=== PATIENT | male | born 1940 | race Caucasian/White ===

== ENCOUNTER 2019-07-20 20:35 | Emergency (ER) | payer MEDICARE, OTHER ==
--- NOTE | 2019-07-20 21:08 | EDM.PDOC ---
ED HPI GENERAL MEDICAL PROBLEM - General Chief Complaint: General Stated Complaint: INNER LEFT LEG PAIN Time Seen by Provider: 07/20/19 20:39 Source of Information: Reports: Patient History Limitations: Reports: No Limitations - History of Present Illness INITIAL COMMENTS - FREE TEXT/NARRATIVE: This patient is a 78-year-old male with a past medical history of hypertension, type 2 diabetes mellitus, hyperlipidemia presenting with thigh pain. Reports a 1 day history of intermittent left medial thigh pain radiating to left groin. Nothing makes it better or worse. No history of prior pain. Described as "aching". No self treatment prior to arrival. Denies any other complaints. Left Upper Leg Pain Score (Numeric/FACES): 5 - Related Data Allergies Allergy/AdvReac Type Severity Reaction Status Date / Time No Known Allergies Allergy Verified 07/20/19 20:50 Home Meds: Home Meds Fenofibrate Nanocrystallized [Fenofibrate] 145 mg PO DAILY 11/12/14 [History] Lisinopril 20 mg PO DAILY 11/12/14 [History] metFORMIN [Glucophage XR] 750 mg PO BID 11/12/14 [History] Aspirin/Calcium Carbonate/Mag [Aspirin Buffered 325 mg Tab] 1 tab PO DAILY 06/25 [History] Fluticasone Propion/Salmeterol [Advair 250-50 Diskus] 1 dose INH DAILY PRN 06/25 [History] Fish Oil/[place]-3 Fatty Acids [Fish Oil] 1 gm PO DAILY 08/06/15 [History] Furosemide 40 mg PO DAILY 07/20/19 [History] Past Medical History HEENT History: Reports: Otitis Media Other HEENT History: wears glasses Cardiovascular History: Reports: High Cholesterol, Hypertension Respiratory History: Reports: COPD Gastrointestinal History: Reports: None Genitourinary History: Reports: Urinary Incontinence Musculoskeletal History: Reports: Fracture Other Musculoskeletal History: finger, also had "cracked" vertebrate in neck Neurological History: Reports: None Psychiatric History: Reports: None Endocrine/Metabolic History: Reports: Diabetes, Type II, Obesity/BMI 30+ Other Endocrine/Metabolic History: borderline diabetic Hematologic History: Reports: None Immunologic History: Reports: None Oncologic (Cancer) History: Reports: Bladder, Prostate Dermatologic History: Reports: None - Infectious Disease History Infectious Disease History: Reports: Chicken Pox, Measles, Mumps - Past Surgical History Head Surgeries/Procedures: Reports: None Cardiovascular Surgical History: Reports: Vascular Surgery Male Surgical History: Reports: Prostatectomy, Other (See Below) Social & Family History - Family History Family Medical History: Noncontributory - Tobacco Use Smoking Status *Q: Former Smoker Years of Tobacco use: 30 Packs/Tins Daily: 1 Used Tobacco, but Quit: Yes Month/Year Tobacco Last Used: Second Hand Smoke Exposure: No - Caffeine Use Caffeine Use: Reports: Coffee - Recreational Drug Use Recreational Drug Use: No ED ROS GENERAL - Review of Systems Review Of Systems: See Below Constitutional: Denies: Fever, Chills HEENT: Reports: No Symptoms Respiratory: Denies: Shortness of Breath Cardiovascular: Denies: Chest Pain Endocrine: Reports: No Symptoms GI/Abdominal: Denies: Abdominal Pain, Nausea, Vomiting : Reports: No Symptoms Musculoskeletal: Reports: Leg Pain. Denies: Back Pain Skin: Reports: No Symptoms Neurological: Denies: Headache Psychiatric: Reports: No Symptoms Hematologic/Lymphatic: Reports: No Symptoms ED EXAM, GENERAL - Physical Exam Exam: See Below Free Text/Narrative:: Vital signs reviewed. Nursing notes reviewed. Constitutional: Awake, alert, non-distressed. Head: Normocephalic, atraumatic. Eyes: EOMI, conjunctiva normal, no discharge, no scleral icterus. Ears, Nose, Throat: External ears and nose normal, moist oral mucosa. Cardiovascular: 2+ radial pulse, capillary refill less than 2 seconds. 2+ bilateral DP and PT pulses. Legs are iso-thermic to the touch. Pulmonary: normal work of breathing, no accessory muscle use. Abdomen/GI: Soft, nontender, nondistended, no guarding or rigidity, no masses. Obese Musculoskeletal: No deformities. Integumentary: Appropriate color for ethnicity, warm, dry, no pallor or jaundice , no rash. Left lower extremity displays no evidence of erythema, induration, or swelling to suggest cellulitis or venous thromboembolism Neurologic: Alert, answering questions appropriately, normal speech, no facial droop, moving all extremities well. Psychiatric: Appropriate mood and affect, normal thought process. Course - Vital Signs Text/Narrative:: Vitally stable on arrival, afebrile. Well-appearing, looks nontoxic. Mildly low SPO2 levels but no shortness of breath. Physical exam revealed mild tenderness of the left medial thigh. No evidence of cellulitis, no swelling. No skin changes. Strong equal distal pulses in both feet, legs are iso-thermic to palpation. D-dimer elevated at 0.84. CBC and metabolic panels are reassuring. Urinalysis unremarkable. DVT ultrasound negative. CT angiogram of the abdomen/pelvis and lower extremities demonstrate a 4.9 cm AAA with moderate thrombus burden, but widely patent arteries in the legs. Etiology of patient's thigh pain is not entirely clear, could be due to musculoskeletal strain. No evidence of infection. With elevated d-dimer, did recommend a repeat DVT ultrasound in 1 week with the patient's primary care physician. He was counseled about the findings of his AAA and the need to follow-up with primary care clinic in the next 1 month for reevaluation. Recommended [id number] acetaminophen for pain and close primary care follow-up. I recommend [id number] extra strength Tylenol for pain. Plan: Patient is stable to discharge home with outpatient primary care follow- up. Strict emergency department return precautions were provided, patient indicated understanding. All questions were answered prior to departure. Discharged in good condition. Last Recorded V/S: Last Vital Signs Temp 35.7 C L 07/21/19 00:41 Pulse 65 07/21/19 00:41 Resp 16 07/21/19 00:41 BP 128/60 07/21/19 00:41 Pulse Ox 94 L 07/21/19 00:41 - Orders/Labs/Meds Orders: Active Orders 24 hr Category Date Time Status Pulse Oximetry [RC] ASDIRECTED Care 07/20/19 21:41 Active Sodium Chloride 0.9% [Normal Saline] Med 07/20/19 21:41 Active 10 ml IV ASDIRECTED PRN Sodium Chloride 0.9% [Saline Flush] Med 07/20/19 21:41 Active 10 ml FLUSH ASDIRECTED PRN Sodium Chloride 0.9% [Saline Flush] Med 07/20/19 21:41 Active 2.5 ml FLUSH ASDIRECTED PRN Peripheral IV Insertion Adult [OM.PC] Stat Oth 07/20/19 21:41 Ordered Medication Orders Sodium Chloride (Saline Flush) 10 ml FLUSH ASDIRECTED PRN PRN Reason: Keep Vein Open Last Admin: 07/20/19 22:20 Dose: 10 ml Sodium Chloride (Saline Flush) 2.5 ml FLUSH ASDIRECTED PRN PRN Reason: Keep Vein Open Last Admin: 07/20/19 22:20 Dose: 2.5 ml Sodium Chloride (Normal Saline) 10 ml IV ASDIRECTED PRN PRN Reason: IV Use Last Admin: 07/20/19 22:20 Dose: 10 ml Labs: Laboratory Tests 07/20/19 07/20/19 07/20/19 Range/Units 21:45 22:15 22:15 WBC 7.04 (4.0-11.0) K/uL RBC 4.53 (4.50-5.90) M/uL Hgb 13.7 (13.0-17.0) g/dL Hct 42.0 (38.0-50.0) % MCV 92.7 (80.0-98.0) fL MCH 30.2 (27.0-32.0) pg MCHC 32.6 (31.0-37.0) g/dL RDW Std Deviation 46.3 (28.0-62.0) fl RDW Coeff of [place] 14 (11.0-15.0) % Plt Count 180 (150-400) K/uL MPV 10.50 (7.40-12.00) fL Neut % (Auto) 55.1 (48.0-80.0) % Lymph % (Auto) 24.9 (16.0-40.0) % [place] % (Auto) 16.9 H (0.0-15.0) % Eos % (Auto) 2.8 (0.0-7.0) % Baso % (Auto) 0.3 (0.0-1.5) % Neut # (Auto) 3.9 (1.4-5.7) K/uL Lymph # (Auto) 1.8 (0.6-2.4) K/uL [place] # (Auto) 1.2 H (0.0-0.8) K/uL Eos # (Auto) 0.2 (0.0-0.7) K/uL Baso # (Auto) 0.0 (0.0-0.1) K/uL Nucleated RBC % 0.0 /100WBC Nucleated RBCs # 0 K/uL D-Dimer, Quantitative (0.0-0.50) mg/L FEU Sodium 139 (136-148) mmol/L Potassium 4.1 (3.5-5.1) mmol/L Chloride 104 (98-107) mmol/L Carbon Dioxide 22.4 (21.0-32.0) mmol/L BUN 28 H (7.0-18.0) mg/dL Creatinine 1.3 (0.8-1.3) mg/dL Est Cr Clr Drug Dosing 43.62 mL/min Estimated GFR (MDRD) 53.7 ml/min Glucose 135 H (74-106) mg/dL Calcium 8.5 (8.5-10.1) mg/dL Total Bilirubin 0.3 (0.2-1.0) mg/dL AST 27 (15-37) IU/L ALT 27 (14-63) IU/L Alkaline Phosphatase 31 L (46-116) U/L Total Protein 6.6 (6.4-8.2) g/dL Albumin 3.5 (3.4-5.0) g/dL Globulin 3.1 (2.6-4.0) g/dL Albumin/Globulin Ratio 1.1 (0.9-1.6) Urine Color YELLOW Urine Appearance CLEAR Urine pH 6.5 (5.0-8.0) Ur Specific [place] 1.020 (1.001-1.035) Urine Protein NEGATIVE (NEGATIVE) mg/dL Urine Glucose (UA) NEGATIVE (NEGATIVE) mg/dL Urine Ketones NEGATIVE (NEGATIVE) mg/dL Urine Occult Blood NEGATIVE (NEGATIVE) Urine Nitrite NEGATIVE (NEGATIVE) Urine Bilirubin NEGATIVE (NEGATIVE) Urine Urobilinogen 0.2 (<2.0) EU/dL Ur Leukocyte Esterase NEGATIVE (NEGATIVE) 07/20/19 Range/Units 22:15 WBC (4.0-11.0) K/uL RBC (4.50-5.90) M/uL Hgb (13.0-17.0) g/dL Hct (38.0-50.0) % MCV (80.0-98.0) fL MCH (27.0-32.0) pg MCHC (31.0-37.0) g/dL RDW Std Deviation (28.0-62.0) fl RDW Coeff of [place] (11.0-15.0) % Plt Count (150-400) K/uL MPV (7.40-12.00) fL Neut % (Auto) (48.0-80.0) % Lymph % (Auto) (16.0-40.0) % [place] % (Auto) (0.0-15.0) % Eos % (Auto) (0.0-7.0) % Baso % (Auto) (0.0-1.5) % Neut # (Auto) (1.4-5.7) K/uL Lymph # (Auto) (0.6-2.4) K/uL [place] # (Auto) (0.0-0.8) K/uL Eos # (Auto) (0.0-0.7) K/uL Baso # (Auto) (0.0-0.1) K/uL Nucleated RBC % /100WBC Nucleated RBCs # K/uL D-Dimer, Quantitative 0.84 H (0.0-0.50) mg/L FEU Sodium (136-148) mmol/L Potassium (3.5-5.1) mmol/L Chloride (98-107) mmol/L Carbon Dioxide (21.0-32.0) mmol/L BUN (7.0-18.0) mg/dL Creatinine (0.8-1.3) mg/dL Est Cr Clr Drug Dosing mL/min Estimated GFR (MDRD) ml/min Glucose (74-106) mg/dL Calcium (8.5-10.1) mg/dL Total Bilirubin (0.2-1.0) mg/dL AST (15-37) IU/L ALT (14-63) IU/L Alkaline Phosphatase (46-116) U/L Total Protein (6.4-8.2) g/dL Albumin (3.4-5.0) g/dL Globulin (2.6-4.0) g/dL Albumin/Globulin Ratio (0.9-1.6) Urine Color Urine Appearance Urine pH (5.0-8.0) Ur Specific [place] (1.001-1.035) Urine Protein (NEGATIVE) mg/dL Urine Glucose (UA) (NEGATIVE) mg/dL Urine Ketones (NEGATIVE) mg/dL Urine Occult Blood (NEGATIVE) Urine Nitrite (NEGATIVE) Urine Bilirubin (NEGATIVE) Urine Urobilinogen (<2.0) EU/dL Ur Leukocyte Esterase (NEGATIVE) Meds: Medications Generic Name Dose Route Start Last Admin Trade Name Freq PRN Reason Stop Dose Admin Sodium Chloride 10 ml 07/20/19 21:41 07/20/19 22:20 Saline Flush FLUSH 10 ml ASDIRECTED PRN Administration Keep Vein Open Sodium Chloride 2.5 ml 07/20/19 21:41 07/20/19 22:20 Saline Flush FLUSH 2.5 ml ASDIRECTED PRN Administration Keep Vein Open Sodium Chloride 10 ml 07/20/19 21:41 07/20/19 22:20 Normal Saline IV 10 ml ASDIRECTED PRN Administration IV Use Discontinued Medications Generic Name Dose Route Start Last Admin Trade Name Freq PRN Reason Stop Dose Admin Oxycodone/Acetaminophen 2 tab 07/20/19 21:41 07/20/19 22:19 Percocet 325-5 Mg PO 07/20/19 21:42 2 tab ONETIME ONE Administration Departure - Departure Time of Disposition: 01:20 Disposition: Home, Self-Care 01 Condition: Good Clinical Impression: Left thigh pain, Elevated d-dimer, AAA (abdominal aortic aneurysm) without rupture - Discharge Information *PRESCRIPTION DRUG MONITORING PROGRAM REVIEWED*: Not Applicable *COPY OF PRESCRIPTION DRUG MONITORING REPORT IN PATIENT CRISTIAN: Not Applicable Instructions: Abdominal Aortic Aneurysm, [id number], Pain Without a Known Cause Referrals: PCP,None [Primary Care Provider] - [facility] - Family Practice [Provider Group] - 1 Week Forms: ED Department Discharge Additional Instructions: Thank you for choosing the [facility] emergency department in [place] for your medical needs today. It was a pleasure caring for you. You were seen in the emergency department for thigh pain. You should follow-up with your doctor or our family medicine clinic in the next [address] scans and ultrasound studies were negative. One of your blood tests, called a d-dimer, was elevated. This is a test for clotting. With a negative ultrasound study, we typically recommend that you have a repeat ultrasound study in about 1 week. Your primary care doctor can arrange this. We also noted that you have an abdominal aortic aneurysm, or ballooning of the large artery in your abdomen. You may have already been aware of this. Your aneurysm is 4.9 cm large, aneurysms that are 5.0 cm or larger typically warrant referral to a vascular surgeon to see if you need to have a stent or graft placed to prevent aneurysm rupture and in the future. I do recommend that you follow-up with your primary doctor or a vascular surgery clinic in the next 1 to 2 weeks for reevaluation of this aneurysm. You need to return to the ER immediately if you have severe abdominal or back pain. Please return the emergency department immediately if your symptoms worsen or if you feel worse. The following information is given to patients seen in the emergency department who are being discharged. This information is to outline your options for follow -up care. We provide all patients seen in our emergency department with a follow -up referral. The need for follow-up, as well as the timing and circumstances, are variable depending upon the specifics of your emergency department visit. If you don't have a primary care physician on staff, we will provide you with a referral. We always advise you to contact your personal physician following an emergency department visit to inform them of the circumstance of the visit and for follow-up with them and/or the need for any referrals to a consulting specialist. The emergency department will also refer you to a specialist when appropriate. This referral assures that you have the opportunity for follow-up care with a specialist. All of these measure are taken in an effort to provide you with optimal care, which includes your follow-up. Under all circumstances we always encourage you to contact your private physician who remains a resource for coordinating your care. When calling for follow-up care, please make the office aware that this follow-up is from your recent emergency room visit. If for any reason you are refused follow-up, please contact the [facility] Emergency Department at and asked to speak to the emergency department charge nurse. If you do not have a primary care physician that is caring for you, you can contact these clinics below to set up an appointment to establish care: [facility] - Primary Care [address] [place] [id number] [facility] [address] [place] [id number] Sepsis Event Note (ED) - Evaluation Sepsis Screening Result: No Definite Risk - Focused Exam Vital Signs: Vital Signs Temp Pulse Resp BP Pulse Ox 07/21/19 00:41 35.7 C L 65 16 128/60 94 L 07/20/19 23:30 61 14 135/73 93 L 07/20/19 22:20 60 15 142/69 H 95 07/20/19 20:55 35.9 C L 68 16 132/65 92 L - My Orders Last 24 Hours: My Active Orders 07/20/19 21:41 Pulse Oximetry [RC] ASDIRECTED Sodium Chloride 0.9% [Normal Saline] 10 ml IV ASDIRECTED PRN Sodium Chloride 0.9% [Saline Flush] 10 ml FLUSH ASDIRECTED PRN Sodium Chloride 0.9% [Saline Flush] 2.5 ml FLUSH ASDIRECTED PRN Peripheral IV Insertion Adult [OM.PC] Stat - Assessment/Plan Last 24 Hours: My Active Orders 07/20/19 21:41 Pulse Oximetry [RC] ASDIRECTED Sodium Chloride 0.9% [Normal Saline] 10 ml IV ASDIRECTED PRN Sodium Chloride 0.9% [Saline Flush] 10 ml FLUSH ASDIRECTED PRN Sodium Chloride 0.9% [Saline Flush] 2.5 ml FLUSH ASDIRECTED PRN Peripheral IV Insertion Adult [OM.PC] Stat
[2019-07-20] MEDS ORDERED: Sodium Chloride 0.9% 2.5 ML Syringe FLUSH PRN (21:41)
[2019-07-20] MEDS ORDERED: Sodium Chloride 0.9% 10 ML SDV IV PRN (21:41)
[2019-07-20] MEDS ORDERED: Acetaminophen/oxyCODONE 325-5 MG Tab PO ONE (21:41)
[2019-07-20] MEDS ORDERED: Sodium Chloride 0.9% 10 ML Syringe FLUSH PRN (21:41)
[2019-07-20 22:43] LABS: CARBON DIOXIDE,CO2 22.4 mmol/L (21.0-32.0); POTASSIUM,K 4.1 mmol/L (3.5-5.1)
--- NOTE | 2019-07-20 23:21 | US ---
INDICATION: Left medial thigh pain TECHNIQUE: Ultrasound venous duplex lower left extremity. Compression venous exam was performed using ornelas-scale, color Doppler, and spectral Doppler analysis. COMPARISON: FINDINGS: Sonographic imaging demonstrates the left common femoral, deep femoral, superficial femoral, popliteal, posterior tibial and greater saphenous and the contralateral right common femoral veins to be fully compressible with normal color Doppler blood flow. IMPRESSION: Normal left lower extremity venous ultrasound, no sign of deep venous thrombosis. Dictated by Zi Barajas MD @ Jul 20 2019 11:18PM Signed by Dr. Zi Barajas @ Jul 20 2019 11:19PM
--- NOTE | 2019-07-21 01:14 | CT ---
INDICATION: Left inguinal and thigh pain. History of left femoral stent. COMPARISON: None available TECHNIQUE: CT angiography of the abdomen and pelvis was performed along with CT angiography of the thighs through the feet with the uneventful intravenous administration of iodinated contrast while 3 mm thick axial and 2 millimeter thick sagittal and coronal sections were obtained from the lung bases through the knees. Please note that all CT scans at this facility use dose modulation, iterative reconstruction, and/or weight-based dosing when appropriate to reduce radiation dose to as low as reasonably achievable. FINDINGS: : In the abdomen, the liver, spleen, pancreas, and adrenals are normal in appearance. There are cysts in both kidneys, a 2.0 centimeter right inferior parapelvic cyst and a 1.9 centimeter left lower pole cyst. The kidneys are otherwise normal in appearance. The gallbladder is normal in appearance. There is aneurysmal dilatation of the infrarenal abdominal aorta with a maximal AP diameter of 4.9 centimeters, extending to the aortic bifurcation but not into the common iliac arteries. There is moderate thrombus along the anterior and left wall of the aneurysm. The celiac axis is widely patent. There is mild stenosis of the proximal SMA, less than 50 percent. The solitary bilateral renal arteries are widely patent. The LORRIE appears to be occluded. There is a widely patent left common iliac artery stents which passes into the superior external iliac artery. There are multiple metallic densities in the superior left internal iliac artery consistent with coil embolization. The right common, external, and internal iliac arteries are widely patent. There is no sign of retroperitoneal mass or adenopathy. The stomach, loops of small bowel, and colon in the abdomen are normal in appearance. In the pelvis, the appendix is normal in appearance with no sign of inflammatory process. The loops of small bowel and colon in the pelvis are normal in appearance. The prostate is normal in appearance. The urinary bladder is normal in appearance. There is no sign of pelvic or inguinal mass or adenopathy. There is no sign of free fluid or free air in the abdomen or pelvis. There is excellent runoff into the legs bilaterally. The common and superficial femoral arteries have mild calcifications with no stenoses. The popliteal arteries are widely patent through the trifurcations, with excellent triple-vessel runoff into both lower extremities. The anterior and posterior tibial arteries reach the ankle in cross the ankle bilaterally. The peroneal arteries reach the ankles as well. There is mild linear atelectasis in the posterior lung bases bilaterally. Additional mild linear atelectasis is present in the inferior anterior right middle lobe. The osseous structures are normal in appearance for the patient`s age. IMPRESSION: CT angiography of the abdominal aorta shows a 4.9 centimeter infrarenal abdominal aortic aneurysm extending to the aortic bifurcation, but not into the common iliac arteries. Widely patent left common and external iliac stent. Embolic coils seen in the superior portion of the left internal iliac artery. Excellent runoff into both lower extremities with triple vessel runoff reaching the ankles bilaterally. CT of the abdomen shows small cysts in both kidneys of no clinical concern. Normal CT of the pelvis with contrast. Please note that all CT scans at this facility use dose modulation, iterative reconstruction, and/or weight-based dosing when appropriate to reduce radiation dose to as low as reasonably achievable. Dictated by Solomon Avalos MD @ Jul 21 2019 12:57AM (Electronically Signed)
[2019-07-21] MEDS ORDERED: Iopamidol 755 MG/ML 500 ML Multipack Bottle IVPUSH STA (01:25)
[2019-07-21 01:42] VITALS: BP 125/66; PULSE 60
== END 2019-07-21 01:43 | disposition home or self-care (01) ==
LOC: MW.ED 20:35
DX: M79.652 Pain in left thigh (principal); R79.1 Abnormal coagulation profile; I71.4 Abdominal aortic aneurysm, without rupture; I10 Essential (primary) hypertension; E11.9 Type 2 diabetes mellitus without complications; J44.9 Chronic obstructive pulmonary disease, unspecified; E66.9 Obesity, unspecified; Z68.39 Body mass index [BMI] 39.0-39.9, adult; Z87.891 Personal history of nicotine dependence; Z79.899 Other long term (current) drug therapy; Z79.82 Long term (current) use of aspirin; Z79.84 Long term (current) use of oral hypoglycemic drugs
CPT/HCPCS: 36415; 75635; 80053; 81003; 85025; 85379; 93971; 99284; A9270; J7050; Q9967

== ENCOUNTER 2021-05-31 13:44 | Emergency (ER) | payer MEDICARE, BC ==
[2021-05-31 16:19] LABS: CARBON DIOXIDE,CO2 31.3 mmol/L (21.0-32.0); POTASSIUM,K 3.7 mmol/L (3.5-5.1)
[2021-05-31] MEDS ORDERED: Iopamidol 755 MG/ML 500 ML Multipack Bottle IVPUSH STA (16:49)
[2021-05-31] MEDS ORDERED: traMADol 50 MG Tab PO ONE (18:03)
[2021-05-31 18:11] VITALS: BP 152/70; PULSE 71
[2021-05-31] MEDS ORDERED: Ketorolac 30 MG/ML SDV IM ONE (18:40)
[2021-05-31] MEDS ORDERED: Lidocaine 5% 700 MG Patch TRDERM ONE (18:41)
== END 2021-05-31 19:17 | disposition home or self-care (01) ==
LOC: MW.ED 13:44
DX: S39.012A Strain of muscle, fascia and tendon of lower back, initial encounter (principal); E78.00 Pure hypercholesterolemia, unspecified; I10 Essential (primary) hypertension; J44.9 Chronic obstructive pulmonary disease, unspecified; E66.9 Obesity, unspecified; E11.9 Type 2 diabetes mellitus without complications; Z79.899 Other long term (current) drug therapy; Z79.84 Long term (current) use of oral hypoglycemic drugs; Z79.82 Long term (current) use of aspirin; Z68.30 Body mass index [BMI] 30.0-30.9, adult; X58.XXXA Exposure to other specified factors, initial encounter
CPT/HCPCS: 36415; 71045; 71275; 74174; 80053; 81003; 85025; 85610; 93005; 96372; 99284; A9270; J1885; Q9967; 93010; 99285